=== PATIENT | female | born 1950 | race Caucasian/White ===

== ENCOUNTER 2016-11-16 07:14 | Emergency (ER) | payer OTHER ==
[~2016-11-16] VITALS: Ht 160 cm; Wt 104.0 kg
[2016-11-16 07:16] VITALS: Ht 160 cm; Wt 104.0 kg
[2016-11-16 08:16] VITALS: BP 176/86; PULSE 104; RESP 20; TEMP 98.3
[2016-11-16 08:19] LABS: URINE BLOOD (Dip) POC 3+ (NEGATIVE)
[2016-11-16 08:29] LABS: ADD SCAN DIFF NO
[2016-11-16 08:38] LABS: BASOPHILS % 0.5 % (0.0-2.0); EOSINOPHILS # 0.1 10^3/ul (0.0-0.5); EOSINOPHILS % 1.4 % (0.0-7.0); HEMOGLOBIN 14.5 g/dl (12.0-16.0); LYMPHOCYTES # 2.1 10^3/ul (0.8-2.9); LYMPHOCYTES % 28.5 % (15.0-51.0); MEAN CORPUSCULAR VOLUME 90.9 fl (82.0-101.0); MEAN PLATELET VOLUME 10.2 fl (7.4-10.4); MONOCYTE # 0.7 10^3/ul (0.3-0.9); MONOCYTES % 9.4 % (0.0-11.0); NEUTROPHIL # 4.4 10^3/ul (1.6-7.5); NEUTROPHILS % 59.7 % (39.0-77.0); PLATELET COUNT 278 10^3/UL (140-415); RED BLOOD COUNT 4.84 10^6/ul (4.20-5.40); RED CELL DISTRIBUTION WIDTH 13.3 % (11.5-14.5); WHITE BLOOD COUNT 7.4 10^3/ul (4.8-10.8)
--- NOTE | 2016-11-16 08:52 | ERD ---
ER Documentation Chief Complaint Date/Time DATE: 11/16/16 TIME: 08:46 Chief Complaint vag bleed yesterday and dysuria x 3 days HPI This is a 66-year-old female, with no significant past medical history, presents to the emergency department with son for vaginal bleeding and dysuria 3 days. Patient reports dysuria, hematuria, urinary frequency and urinary urgency. Patient also reports vaginal bleeding similar to having her menstrual period. Patient has been menopausal for many years. Denies nausea, vomiting, diarrhea or constipation. No fevers or chills. Denies suprapubic tenderness. Denies abdominal pain, back pain or chest pain. No shortness of breath or difficulty breathing. ROS All systems reviewed and are negative except as per history of present illness. Allergies Allergies: Coded Allergies: No Known Allergy (Unverified , 11/16/16) PMhx/Soc Medical and Surgical Hx: pt denies Medical Hx, pt denies Surgical Hx Hx Alcohol Use: No Hx Substance Use: No Physical Exam Vitals Vital Signs Date Time Temp Pulse Resp B/P Pulse Ox O2 Delivery O2 Flow Rate FiO2 11/16/16 08:16 98.3 104 20 176/86 100 Room Air 11/16/16 07:16 98.3 96 8 191/86 99 Physical Exam Const: no acute distress, alert Head: Atraumatic Eyes: Normal Conjunctiva ENT: Normal External Ears, Nose and Mouth. Neck: Full range of motion..~ No meningismus. Resp: Clear to auscultation bilaterally. No wheezing, rhonchi or crackles. Cardio: Regular rate and rhythm, no murmurs Abd: Soft, non tender, non distended. Normal bowel sounds. no guarding or mass Skin: No petechiae or rashes Back: No midline or flank tenderness Ext: No cyanosis, or edema Neur: Awake and alert Psych: Normal Mood and Affect Result Diagram: 11/16/16 0817 11/16/16 0817 Results 24 hrs Laboratory Tests Test 11/16/16 08:17 11/16/16 08:21 White Blood Count 7.410^3/ul Red Blood Count 4.8410^6/ul Hemoglobin 14.5g/dl Hematocrit 44.0% Mean Corpuscular Volume 90.9fl Mean Corpuscular Hemoglobin 30.0pg Mean Corpuscular Hemoglobin Concent 33.0g/dl Red Cell Distribution Width 13.3% Platelet Count 54452^3/UL Mean Platelet Volume 10.2fl Neutrophils % 59.7% Lymphocytes % 28.5% Monocytes % 9.4% Eosinophils % 1.4% Basophils % 0.5% Nucleated Red Blood Cells % 0.0/100WBC Neutrophils # 4.410^3/ul Lymphocytes # 2.110^3/ul Monocytes # 0.710^3/ul Eosinophils # 0.110^3/ul Basophils # 0.010^3/ul Nucleated Red Blood Cells # 0.010^3/ul Sodium Level 142mmol/L Potassium Level 3.5mmol/L Chloride Level 103mmol/L Carbon Dioxide Level 28mmol/L Anion Gap 15 Blood Urea Nitrogen 13mg/dl Creatinine 0.56mg/dl Glucose Level 122mg/dl Calcium Level 9.4mg/dl Bedside Urine pH (LAB) 6.0 Bedside Urine Protein (LAB) Negative Bedside Urine Glucose (UA) Negative Bedside Urine Ketones (LAB) Negative Bedside Urine Blood 3+ Bedside Urine Nitrite (LAB) Negative Bedside Urine Leukocyte Esterase (L Negative Procedures/MDM MDM: 66-year-old female presents emergency department for vaginal bleeding and dysuria 3 days. Patient has also had urinary frequency and urinary urgency. Patient also reports vaginal bleeding similar to menstrual period. Patient has been menopausal for many years. No fevers or chills. Denies nausea, vomiting, diarrhea or constipation. No back or abdominal pain. Patient has "some" pelvic discomfort intermittently. Labs are unremarkable. No significant anemia or infection. No significant electrolyte imbalance. Pelvic ultrasound reviewed by radiologist as vascular as , heterogeneous endometrium. Endometrial neoplasm should be considered. Spoke with Dr. Vega at 09:16am. Discussed findings with Dr. Trejo who agrees that this patient is appropriate for outpatient management and needs urgent follow-up with SENIOR HARDWARE DESIGN ENGINEER. Spoke with labor is Dr. Kearns who instructed me to provide resources to [facility] and Dr. De La Cruz for biopsy and additinal managment. Spoke at length with patient's son regarding findings on ultrasound and appropriate follow up care. Patient's son verbalizes understanding. Return to ED sooner for any high fever , chest pain, difficulty breathing, shortness breath, wheezing, vomiting, diarrhea, abdominal pain or any new or worsening symptoms. Patient's son verbalizes understanding. All questions answered at discharge. Differential diagnosis includes but not limited to , endometrial mass, uterine fibroid, ruptured ovarian cyst, UTI or pyelonephritis. Departure Diagnosis: Primary Impression: Vaginal bleeding Condition: Stable YAKOV YUNG NP November 16, 2016 08:52
[2016-11-16 08:54] LABS: POTASSIUM 3.5 mmol/L (3.5-5.1)
[2016-11-16 08:56] LABS: CREATININE 0.56 mg/dl (0.44-1.00)
[2016-11-16 08:57] LABS: CALCIUM 9.4 mg/dl (8.4-10.2)
--- NOTE | 2016-11-16 09:18 | RADRPT ---
PROCEDURE: US Pelvis. CLINICAL INDICATION: Postmenopausal vaginal bleeding. TECHNIQUE: Multiple sonographic images of the pelvis were obtained utilizing a transabdominal and endovaginal technique. The images were reviewed on a PACS workstation. COMPARISON: None available. FINDINGS: The uterus is retroverted and measures 7.7 x 5.3 x 5.5 cm. The endometrial echo complex is prominent , vascularized, heterogeneous and measures 4.5 x 2.5 x 3.8 cm. There is There is no evidence for fr ee fluid. The ovaries are not identified.. No adnexal masses are noted. IMPRESSION: 1. Vascular as, heterogeneous endometrium measuring 4.5 x 2.5 x 3.8 cm. Endometrial neoplasm should be considered. Further NEWSPAPER PHOTOJOURNALIST surgical evaluation is suggested. Note: A call report was made to Vijaya Ruby on 11/16/2016 9:16:58 AM. RPTAT: [facility] Physician Bossman Date Time Electronically viewed and signed by Physician Bossman on 11/16/2016 09:18 /
== END 2016-11-16 10:18 | disposition home or self-care (01) ==
LOC: FTE 07:14
DX: N93.9 Abnormal uterine and vaginal bleeding, unspecified (principal)
CPT/HCPCS: 36415; 76830; 76856; 80048; 81003; 85025